=== PATIENT | female | born 1990 | race Caucasian/White ===

== ENCOUNTER 2022-02-24 08:57 | Day surgery (SDC) | payer MEDICAID ==
[2022-02-21 14:43] LABS: BASOPHILS % (AUTO) 0.3 % (0-1); EOSINOPHILS # (AUTO) 0.1 X10'3 (0-0.9); EOSINOPHILS % (AUTO) 0.8 % (0-6); LYMPHOCYTES # (AUTO) 1.6 X10'3 (1.1-4.8); LYMPHOCYTES % (AUTO) 22.5 % (21-51); MEAN CORPUSCULAR HEMOGLOBIN 29.4 PG (27.0-31.0); MEAN CORPUSCULAR HGB CONC 32.9 g/dL (33.0-36.5); MEAN CORPUSCULAR VOLUME 89.2 FL (78-98); MEAN PLATELET VOLUME 8.7 FL (7.4-10.4); MONOCYTES # (AUTO) 0.4 X10'3 (0-0.9); MONOCYTES % (AUTO) 5.9 % (2-12); NEUTROPHILS # (AUTO) 5.1 X10'3 (1.8-7.7); NEUTROPHILS % (AUTO) 70.5 % (42-75); PRE OP HEMATOCRIT 40.4 % (35.0-45.0); PRE OP HEMOGLOBIN 13.3 g/dL (12.0-16.0); PRE OP PLATELET COUNT 258 X10'3 (140-440); RED BLOOD COUNT 4.53 X10'6 (4.20-5.60); RED CELL DISTRIBUTION WIDTH 12.5 % (11.5-14.5)
[2022-02-21 14:48] LABS: ALBUMIN/GLOBULIN RATIO 1.3 (1.1-1.5); ALKALINE PHOSPHATASE 70 IU/L (46-116); BLOOD UREA NITROGEN 12 MG/DL (7-18); BUN/CREATININE RATIO 18.5 (6.6-38.0); CALCIUM 8.5 MG/DL (8.5-10.1); CHLORIDE 102 MMOL/L (99-107); CREATININE 0.65 MG/DL (0.40-0.90); PRE OP ALT 78 U/L (30-65); PRE OP ANION GAP 4 (8-16); PRE OP AST 39 U/L (10-37); PRE OP BILIRUB, TOTAL 0.4 MG/DL (0.0-1.0); PRE OP GLUCOSE 98 MG/DL (70-104); PRE OP SODIUM 137 MMOL/L (135-145); TOTAL CARBON DIOXIDE 30.9 MMOL/L (24-32); TOTAL PROTEIN 7.2 G/DL (6.4-8.2); eGFR > 90 ML/MIN
[2022-02-21 15:32] LABS: HCG SERUM QL NEGATIVE
[~2022-02-24] VITALS: Ht 162.6 cm; Wt 69.2 kg
[2022-02-24] VITALS (14 sets, daily range): BP systolic 91–129; BP diastolic 49–83
[~2022-02-24 08:57] MED LIST: ceFAZolin inj. 2,000 MG in dextrose 5%-water 100 ML IV ONE; famotidine 20mg tablet PO ONE; ringers solution, lacted 1,000 ML IV SCH
[2022-02-24] MEDS ORDERED: morphine 2 MG/ML inj. syringe IV PRN (10:20)
[2022-02-24] MEDS ORDERED: hydrALAZINE 20mg/ml inj. IV PRN (10:20)
[2022-02-24] MEDS ORDERED: meperidine/PF 25mg/ml syringe IV PRN ×3 (10:20)
[2022-02-24] MEDS ORDERED: ondansetron/PF 4mg/2ml inj IV PRN (10:20)
[2022-02-24] MEDS ORDERED: ringers solution, lacted 1,000 ML IV SCH (10:20)
[2022-02-24] MEDS ORDERED: morphine 4 MG/ML inj SYRINge IV PRN (10:20)
[2022-02-24] MEDS ORDERED: proCHLORperazine 10 MG/2 ml inj IV PRN (10:20)
[2022-02-24] MEDS ORDERED: acetaminophen 1,000mg/100ml IV 100 ML IV PRN (10:20)
[2022-02-24] MEDS ORDERED: labetalol 20mg/4ml (5mg/ml) syringe IV PRN (10:20)
[2022-02-24] MEDS ORDERED: ketorolac trometh. 30mg/ml inj. IV ONE (10:20)
[2022-02-24] MEDS ORDERED: BUPIVAcaine 0.25% w/Epi /PF 30ml vial ONE ×2 (12:42→12:54)
[2022-02-24] MEDS ORDERED: sevoflurane 250ml liquid IH ONE (12:50)
[2022-02-24] MEDS ORDERED: midazolam 1 mg/ML 2ml injection ONE (12:55)
[2022-02-24] MEDS ORDERED: insulin regular, human U-100 3ml vial - multi-dose ONE (13:05)
[2022-02-24] MEDS ORDERED: propofol inj 20 ML IV ONE (13:09)
[2022-02-24] MEDS ORDERED: LIDOcaine 1%/PF 5ML 10 MG/ML VIAL ONE ×2 (13:09)
[2022-02-24] MEDS ORDERED: dexamethasone sod phosphate 4mg/ml inj. ONE (13:09)
[2022-02-24] MEDS ORDERED: rocuronium 10mg/ml inj IV ONE (13:09)
[2022-02-24] MEDS ORDERED: fentaNYL /PF 50mcg/ml 5ml ampule ONE (13:09)
[2022-02-24] MEDS ORDERED: ondansetron/PF 4mg/2ml inj ONE (13:09)
[2022-02-24] MEDS ORDERED: glycopyrrolate 0.2mg/ml inj ONE (13:21)
[2022-02-24] MEDS ORDERED: neostigmine methylsulfate 1 MG/ML 10ml vial ONE (13:21)
[2022-02-24] MEDS ORDERED: bupivacaine 0.25%/epinephrine 1:200,000 inj (contains preserv. MDV) IM ONE (13:30)
--- NOTE | 2022-02-24 13:40 | NUR ---
Received from OR via , accompanied by Anesthesiologist DR MARTINEZ and report given by Anesthesiolgist. PT PRESENTS WITH PIV 20G LEFT HAND,ABD DRESSING BANDAID GITA, VSS. Addendum: 02/24/22 at 1347 by Stacey Phillips RN, RN Amended: Links added.
--- NOTE | 2022-02-24 15:40 | NUR ---
I HAVE REVIEWED D/C INSTRUCTIONS WITH PATIENT AND THEY HAVE VERBALIZED UNDERSTANDING OF INSTRUCTIONS. PATIENT D/C HOME WITH ALL BELONGINGS AND FAMILY GAVE TRANSPORT. PT WENT HOME WITH ALL BELONGINGS, CELL PHONE AND BOOK. GAVE TRANSPORT HOME. Addendum: 02/24/22 at 1549 by Stacey Phillips RN, RN Amended: Links added.
== END 2022-02-24 15:40 | disposition home or self-care (01) ==
LOC: PAS 08:57
PROVIDERS: ATTEND Obstetrics & Gynecology
DX: Z30.2 Encounter for sterilization (principal); Z98.890 Other specified postprocedural states; Z98.818 Other dental procedure status; Z72.89 Other problems related to lifestyle; Z79.899 Other long term (current) drug therapy
CPT/HCPCS: 36415; 58670; 80053; 82948; 84703; 85025; J0131; J0690; J1100; J1815; J1885; J2250; J2405; J2704; J2710; J3010; J3490; J7060; J7120; S0020; Z7506; Z7512; A4618; A7000